=== PATIENT | male | born 1950 | race Caucasian/White ===

== ENCOUNTER 2019-06-27 20:17 | Inpatient (IN) ==
[2019-06-27 20:44] LABS: BASO# 0.02 X1000 (0.0-0.2); BASO% 0.3 % (0.0-0.8); EOS% 1.4 % (0.0-10.0); HEMOGLOBIN 15.4 g/dL (14.0-18.0); IMM GRAN# 0.02 X1000 (0.0-0.04); IMM GRAN% 0.3 % (0.0-0.5); LYMPH# 1.69 X1000 (1.2-3.4); LYMPH% 23.4 % (20.5-51.1); MCH 28.8 PG (27-31); MCHC 32.8 g/dL (33-37); MONO# 0.51 X1000 (0.11-0.59); MONO% 7.1 % (1.7-9.3); MPV 11.9 FL (7.4-10.4); NEUT# 4.87 X1000 (1.4-6.5); NEUT% 67.5 % (42.2-75.2); PLT 185 X1000 (130-400); RBC 5.34 XMIL (4.7-6.1); RDW 14.2 % (11.5-14.5); WBC 7.21 X1000 (4.8-10.8)
--- NOTE | 2019-06-27 20:48 | PROVIDER DOCUMENTATION ---
HPI-Neurological Disorder - General Chief Complaint: Stroke-Like Symptoms Stated Complaint: STROKE SX Time Seen by Provider: 06/27/19 20:31 Source: patient Allergies/Adverse Reactions: Patient Allergies Allergy/AdvReac Type Severity Reaction Status Date / Time No Known Allergies Allergy Verified 01/15/18 08:17 Home Medications: Home Medication List Medication Instructions Recorded Confirmed Last Taken Type Aspirin 81 mg PO DAILY 01/15/18 06/27/19 Unknown History Atorvastatin Calcium 40 mg PO DAILY 01/15/18 06/27/19 Unknown History Cyanocobalamin 1,000 mcg IM DIRECTED 01/15/18 06/27/19 Unknown History Levothyroxine [Synthroid] 0.05 mg PO DAILY 01/15/18 06/27/19 Unknown History Amlodipine Besylate 5 mg PO DAILY 06/27/19 06/27/19 Unknown History Cholecalciferol (Vitamin D3) 1 cap PO DAILY 06/27/19 06/27/19 Unknown History [D3-2000] Clonidine HCl 0.1 mg PO BID 06/27/19 06/27/19 Unknown History Clopidogrel Bisulfate [Clopidogrel] 75 mg PO DAILY 06/27/19 06/27/19 Unknown History - History of Present Illness-Neuro Nature of Presenting Problem: 68 YOM WITH PMH OF HTN AND CVA 2 MONTHS AGO PRESENTS WITH HEADACHE, SLURRED SPEECH (RESOLVED BEFORE ARRIVAL), L SIDED WEAKNESS INCREASED. 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 HE DENIES CP, SOB, N/V/D. PATIENT IS CURRENTLY ON PLAVIX. RECENTLY ADMITTED IN HOSPITAL IN [facility] FOR SAME COMPLAINTS AND STARTED ON PLAVIX. Headache Location: reports: global Severity: reports: mild Onset/Duration: reports: 1 hour ago Timing: reports: still present, improving Context: reports: impaired speech Character of Altered Mental Status: reports: N/A Any recent trauma/injury?: reports: none Character of Deficits: reports: new weakness, impaired speech (RESOLVED APPOINTMENT SETTER) New weakness or altered sensation location:: reports: JACE DON Cognitive Baseline: alert, oriented x3 Gait Baseline: walks without assistance Associated Symptoms: reports: denies symptoms Similar Symptoms Previously?: Yes Recently seen or treated by another doctor?: No Review of Systems - Adult - REVIEW OF SYSTEMS - ADULT Constitutional: reports: no symptoms reported. denies: see HPI, chills, fever, fatique, night sweats, weight gain, weight loss, other Eyes: reports: no symptoms reported. denies: see HPI, discharge, dry eyes, decreased vision, blurred vision, double vision, eye pain, redness, other Ears, Nose, Mouth & Throat: reports: no symptoms reported. denies: see HPI, ear discharge, ear pain, hearing loss, tinnitus, epistaxis, sinus problem, nose pain, loose teeth, mouth/dental pain, mouth swelling, hoarseness, throat pain, throat swelling, other Cardiovascular: reports: no symptoms reported. denies: see HPI, chest pain, edema, heart murmur, irregular heart rate, orthopnea, palpitations, poor circulation, PND, syncope, other Respiratory: reports: no symptoms reported. denies: see HPI, chronic cough, cough, dyspnea on exertion, excessive sputum production, hemoptysis, pleurisy, shortness of breath, wheezing, other Gastrointestinal: reports: no symptoms reported. denies: see HPI, abdominal pain, hematemesis, constipation, diarrhea, difficulty swallowing, frequent heartburn, nausea, poor appetite, rectal bleeding, vomiting, other Genitourinary: reports: no symptoms reported. denies: see HPI, dysuria, discharge, frequency, flank pain, frequent UTI's, hematuria, hesitency, incontinence, urinary retention, urgency, other Musculoskeletal: reports: no symptoms reported. denies: see HPI, bone pain, back pain, frequent leg cramps, joint pain, joint swelling, muscle aches, muscle weakness, neck pain, other Integumentary: reports: no symptoms reported. denies: see HPI, hives, hair loss, itching, mole changes, nail changes, rash, skin sores/ulcer, skin thickening, other Neurological: reports: see HPI, headache/migraines, paresthesia, slurred speech, other (L SIDED WEAKNESS) Psychiatric: reports: no symptoms reported. denies: see HPI, anxiety, anti- depressant use, alcohol/drug dependence, depression, emotional problems, insomnia, panic attacks, suicidal thoughts, other Endocrine: reports: no symptoms reported. denies: see HPI, change in skin pigment, excessive sweating, goiter, cold intolerance, heat intolerance, increased hunger, increased thirst, polyuria, other Hematologic/Lymphatic: reports: no symptoms reported. denies: see HPI, blood clots, easy bruising, low blood count, lymphedema, prolonged bleeding, swollen lymph nodes, transfusions, other Allergic/Immunologic: reports: no symptoms reported. denies: see HPI, allergic reactions, allergic rhinitis, asthma, eczema, food allergy, frequent infections, hay fever, hives, positive PPD, urticaria, other Past History - Adult - PAST MEDICAL HISTORY-ADULT Review of Records: reports: Nursing Assessment Review, Social history reviewed & non-contributory. Major Childhood Illnesses: reports: denies history Cardiovascular: reports: denies history Respiratory: reports: denies history Gastrointestinal: reports: denies history Genitourinary: reports: prostate cancer Musculoskeletal: reports: denies history Neurological: reports: denies history Psychiatric: reports: denies history Endocrine/Immune: reports: denies history - PRIOR SURGERIES/PROCEDURES Surgical/Procedure History: reports: other (prostate) Physical Exam- Neurological - Physical Exam-Neuro Initial Vital Signs Reviewed: Yes General Appearance: appears well, alert, no apparent distress Eye Exam: bilateral eye: normal inspection, PERRL, EOMI HENMT: normocephalic/atraumatic, moist mucous membranes, normal ENT inspection Head Injury: no evidence of injury Neck: non-tender, full range of motion, supple Respiratory: chest non-tender, lungs clear, normal breath sounds, no pleuratic chest pain, no respiratory distress, no accessory muscle use Cardiovascular: normal peripheral pulses, regular rate, rhythm, no edema, no gallop, no JVD, no murmur Abdominal Exam: normal bowel sounds, non tender, soft, no organomegaly, no pulsatile mass Lymphatic: no adenopathy Extremity: normal range of motion, non-tender, normal gait senior applications developer Exam: normal hearing, PERRL. negative: facial droop Coordination/Gait: normal finger to nose, normal gait Motor/Sensory: no motor deficit, no sensory deficit, no pronator drift, weak motor strength LUE, weak motor strength LLE. negative: sensory deficit Neurologic: grossly normal, focal weakness (L SIDE). negative: aphasia, facial droop Integumentary: normal color, normal turgor, warm/dry Psych/Mental Status: normal mood/affect, oriented x 3 - Glascow Coma Scale Best Eye Response: (4) open spontaneously Best Verbal Response: (5) oriented Best Motor Response: (6) obeys commands Progress - PLAN OF CARE/RESULTS Progress/Plan/Lab Results: Vital Signs - 8 hr 06/27/19 20:34 06/27/19 21:13 Temperature 98.7 F 99.1 F Pulse Rate 85 73 Respiratory Rate 16 Blood Pressure 180/74 157/71 O2 Sat by Pulse Oximetry 97 97 Laboratory Results - last 24 hr 06/27/19 06/27/19 06/27/19 20:38 20:38 20:38 WBC 7.21 RBC 5.34 Hgb 15.4 Hct 47.0 MCV 88.0 MCH 28.8 MCHC 32.8 L RDW Std Deviation 14.2 Plt Count 185 MPV 11.9 H Immature Gran % (Auto) 0.3 Neut % (Auto) 67.5 Lymph % (Auto) 23.4 Ray % (Auto) 7.1 Eos % (Auto) 1.4 Baso % (Auto) 0.3 Immature Gran # (Auto) 0.02 Neut # (Auto) 4.87 Lymph # (Auto) 1.69 Ray # (Auto) 0.51 Eos # (Auto) 0.10 Baso # (Auto) 0.02 PT INR PTT (Actin FS) Sodium 140 Potassium 4.4 Chloride 105 Carbon Dioxide 23 L Anion Gap 11 BUN 13 Creatinine 1.0 Estimated GFR/1.73 m2 > 60 BUN/Creatinine Ratio 13 Glucose 197 H POC Glucose Calculated Osmolality 285 Calcium 9.1 Total Bilirubin 1.40 H AST 14 ALT 13 Alkaline Phosphatase 59 Troponin T < 0.010 Total Protein 6.7 Albumin 4.3 Globulin 2.0 Albumin/Globulin Ratio 2.0 Urine Source Urine Color Urine Clarity Urine pH Ur Specific Ulm Urine Protein Urine Ketones Urine Blood Urine Nitrite Urine Bilirubin Urine Urobilinogen Urine Microscopic RBC Urine WBC Urine Microscopic WBC Ur Epithelial Cells Urine Crystals Urine Bacteria Urine Casts Urine Yeast Urine Glucose Urine Opiates Screen Ur Oxycodone Screen Urine Methadone Screen U Propoxyphene Qual Ur Barbituates Screen Ur Tricyclics Screen Ur Phencyclidine Scrn Ur Amphetamines Screen U Methamphetamines Scrn U Benzodiazepines Scrn Urine Cocaine Screen U Cannabinoids Screen 06/27/19 06/27/19 06/27/19 20:38 21:03 21:07 WBC RBC Hgb Hct MCV MCH MCHC RDW Std Deviation Plt Count MPV Immature Gran % (Auto) Neut % (Auto) Lymph % (Auto) Ray % (Auto) Eos % (Auto) Baso % (Auto) Immature Gran # (Auto) Neut # (Auto) Lymph # (Auto) Ray # (Auto) Eos # (Auto) Baso # (Auto) PT 12.2 INR 0.87 PTT (Actin FS) 24.7 Sodium Potassium Chloride Carbon Dioxide Anion Gap BUN Creatinine Estimated GFR/1.73 m2 BUN/Creatinine Ratio Glucose POC Glucose 192 H Calculated Osmolality Calcium Total Bilirubin AST ALT Alkaline Phosphatase Troponin T Total Protein Albumin Globulin Albumin/Globulin Ratio Urine Source CLEAN CATCH Urine Color YELLOW Urine Clarity CLEAR Urine pH 5.0 Ur Specific Ulm 1.015 Urine Protein NEGATIVE Urine Ketones NEGATIVE Urine Blood 1+ A Urine Nitrite NEGATIVE Urine Bilirubin NEGATIVE Urine Urobilinogen NORMAL Urine Microscopic RBC <10 Urine WBC NEGATIVE Urine Microscopic WBC <10 Ur Epithelial Cells <10 Urine Crystals NONE SEEN Urine Bacteria 1+ Urine Casts NONE SEEN Urine Yeast NONE SEEN Urine Glucose 2+(250 mg/dL) A Urine Opiates Screen Ur Oxycodone Screen Urine Methadone Screen U Propoxyphene Qual Ur Barbituates Screen Ur Tricyclics Screen Ur Phencyclidine Scrn Ur Amphetamines Screen U Methamphetamines Scrn U Benzodiazepines Scrn Urine Cocaine Screen U Cannabinoids Screen 06/27/19 21:07 WBC RBC Hgb Hct MCV MCH MCHC RDW Std Deviation Plt Count MPV Immature Gran % (Auto) Neut % (Auto) Lymph % (Auto) Ray % (Auto) Eos % (Auto) Baso % (Auto) Immature Gran # (Auto) Neut # (Auto) Lymph # (Auto) Ray # (Auto) Eos # (Auto) Baso # (Auto) PT INR PTT (Actin FS) Sodium Potassium Chloride Carbon Dioxide Anion Gap BUN Creatinine Estimated GFR/1.73 m2 BUN/Creatinine Ratio Glucose POC Glucose Calculated Osmolality Calcium Total Bilirubin AST ALT Alkaline Phosphatase Troponin T Total Protein Albumin Globulin Albumin/Globulin Ratio Urine Source Urine Color Urine Clarity Urine pH Ur Specific Ulm Urine Protein Urine Ketones Urine Blood Urine Nitrite Urine Bilirubin Urine Urobilinogen Urine Microscopic RBC Urine WBC Urine Microscopic WBC Ur Epithelial Cells Urine Crystals Urine Bacteria Urine Casts Urine Yeast Urine Glucose Urine Opiates Screen NONE DETECTED Ur Oxycodone Screen NONE DETECTED Urine Methadone Screen NONE DETECTED U Propoxyphene Qual NONE DETECTED Ur Barbituates Screen NONE DETECTED Ur Tricyclics Screen NONE DETECTED Ur Phencyclidine Scrn NONE DETECTED Ur Amphetamines Screen NONE DETECTED U Methamphetamines Scrn NONE DETECTED U Benzodiazepines Scrn NONE DETECTED Urine Cocaine Screen NONE DETECTED U Cannabinoids Screen NONE DETECTED Orders Category Date Time Status Admit - [facility] Routine AdmDCTranf 06/27/19 21:21 Active Activity - Bed Rest with BRP ORDERED Care 06/27/19 21:21 Active Cardiac Monitoring DIRECTED Care 06/27/19 20:34 Active Finger Stick Blood Sugar (ED) DIRECTED Care 06/27/19 20:34 Active Neurological Check ORDERED Care 06/27/19 21:21 Active Saline Loc DIRECTED Care 06/27/19 21:21 Active Saline Loc NOW Care 06/27/19 20:34 Active Vital Signs Order ROUTINE Care 06/27/19 21:21 Active Heart Healthy Diet Diet 06/27/19 21:23 Active CHEST-PORTABLE [RAD] Stat Exams 06/27/19 20:[address] HEAD W/O CONTRAST [CT] Stat Exams 06/27/19 20:34 Completed CBC WITH ELECTRONIC DIFF [HEME] Stat Lab 06/27/19 20:38 Completed COMPREHENSIVE METABOLIC PANEL [CHEM] Stat Lab 06/27/19 20:38 Completed PROTIME WITH INR [COAG] Stat Lab 06/27/19 20:38 Completed PTT [COAG] Stat Lab 06/27/19 20:38 Completed TROPONIN T Stat Lab 06/27/19 20:[address] W/POSS RFLX CULT [URINALYSIS] Stat Lab 06/27/19 21:07 Completed URINE DRUG SCREEN PL Stat Lab 06/27/19 21:07 Completed 0.9% Sodium Chloride Inj [Ns] 1,000 ml Med 06/27/19 21:21 Active IV 50 mls/hr EKG [EKG] Stat Ther 06/27/19 20:34 Ordered Transfer/Admit Order [TRANSFER] Routine Transfer 06/27/19 21:23 Ordered Result Diagrams: 06/27/19 20:38 06/27/19 20:38 - EKG 1 Time of EKG reading by physician:: 22:08 EKG Read and Signed by:: Edmond Miller EKG Interpretation (*Must complete 3 of following elements*): Abnormal Rate: 71 Rhythm: SR WITH INCOMPLETE RMM Wallace: normal QRS: normal MO Interval: normal ST Wave: non-specific ST changes Prior EKG Comparison: no prior EKG Departure - Departure Date of Disposition Decision: 06/27/19 Time of Disposition Decision: 21:39 DIAGNOSIS: TIA (transient ischemic attack) Disposition: ADMITTED INPATIENT 09 Certified Medical Emergency: Emergent Condition: Stable - Critical Care Note This patient required my direct & personal management of CC.: No Attestation - Physician/ JOELLE Attestation Patient care was provided by Advanced Practice Provider:: Yes Advanced Practice Provider:: Shanell Rosas Advanced Practice Provider documentation review:: The Mid-level provider documentation, treatment plan and medical decision making was reviewed by the physician who agrees with all treatment and medical decision making by the MLP. The physician spent face to face time with patient:: Yes Advanced Practice Provider documentation review:: Supervising physician onsite and consulted in the evaluation and care of this patient. The physician did have a face to face encounter with the patient. - NIH Stroke Scale NIH Type: Initial Evaluation Level of Consciousness: 0-Alert LOC Questions (ask month and age): 0-Answers Both Correctly LOC Commands (ask to open & close eyes;make a fist, let go): 0-Obeys Both Correctly Best Gaze (horizontal eye movement): 0-Normal Visual (use finger movement, counting or visual threat): 0-No Visual Loss Facial Palsy (show teeth or raise eyebrows & close eyes tght: 0-Symmetrical Movement Motor Function-left arm: 1-Drift Motor Function-right arm: 1-Drift Motor Function-left le-Normal Motor Function-right le-Normal Limb Ataxia([id number], or heel to emerson): 0-No Ataxia Sensory(pin prick to face,arms,trunk,legs-compare side/side): 0-No Ataxia Best Language(name item/read sentence.Ex-Down to Earth): 0-No Aphasia Dysarthria(Pt read words or say words Ex.Mama,Tip-Top,Thanks: 0-Normal Articulat ion NIH Total Score: 2 Stroke tPA Guidelines - Inclusion Criteria for IV tPA 18 years old or older: Yes Ischemic stroke with measurable deficit: Yes Onset <3 hours ago *OR* 3-4.5 hours ago: Yes - Exclusion Criteria for IV tPA Evidence of intracranial hemorrhage on CT: No Presentation suggest SAH: No CT reveals defined area of hypodensity: No Evidence of AVM, neoplasm, aneurysm: No Seizure at stroke onset: No Active internal bleeding or acute trauma: No Platelet Count Less Than 100,000: No Heparin Within Last 48 HRS (PTT >Lab normal limits): No INR > 1.7 (warfarin use): No Use IIB/IIIA inhibitors within 24 hours: Yes Serious Head Trauma Within Last 3 Months: No Arterial Puncture Within Last 7 Days: No Lumbar Puncture Within Last 7 Days: No Repeated systolic Blood Pressure >185 or Diastolic >110: Yes - Additional Exclusion Criteria for IV tPA Currently on Coumadin: No Patient older than 80: No Prior stroke and diabetes: Yes Baseline NIHSS score > 25: No - Relative Contraindications to IV tPA CT reveals extensive area of infarct (>1/3 MCA territory): No Minor or rapidly improving stroke symptoms: Yes Major Surgery or Serious Trauma In Previous 14 Days: No AMI within 3 months: No Gastrointestinal or Urinary Tract hemorrhage in Past 21 Days: No Post - AMI pericarditis: No Blood Glucose Less Than 50 mg/dl or Greater Than 400 mg/dl: No - Consultation Candidate for:: NOT A CANDIDATE
--- NOTE | 2019-06-27 20:58 | Diag Imaging Result Doc PS360 ---
EXAM: CT HEAD W/O CONTRAST HISTORY: STROKE SYMPTOMS TECHNIQUE: CT head without contrast COMPARISON: None. FINDINGS: No parenchymal hemorrhage. No epidural or subdural hematoma. No subarachnoid hemorrhage. No mass identified on this noncontrasted exam. No hydrocephalus. No sinus opacification. IMPRESSION: No hemorrhage. Negative brain CT without contrast. This exam was performed using automated exposure control, adjustment of mA or kV according to patient size, and/or use of iterative reconstruction technique. Electronically signed by Otf Bennett 06/27/2019 8:55 PM
--- NOTE | 2019-06-27 21:00 | Diag Imaging Result Doc PS360 ---
EXAM: CHEST-PORTABLE HISTORY: STROKE SYM TECHNIQUE: Single view COMPARISON: 12/17/2017 FINDINGS: The lungs are well expanded. The heart is not enlarged. The vessels are not distended. There are no infiltrates. No effusion identified. IMPRESSION: Negative exam. Electronically signed by Otf Bennett 06/27/2019 8:57 PM
[2019-06-27 21:03] LABS: INR 0.87; PROTIME 12.2 Seconds (11.0-16.0)
[2019-06-27 21:04] LABS: PTT 24.7 Seconds (22.3-41.8)
[2019-06-27 21:06] LABS: AGAP 11; ALBUMIN 4.3 g/dL (3.5-5.0); ALKALINE PHOSPHATASE 59 U/L (32-122); BUN 13 mg/dL (8-22); CALCIUM 9.1 mg/dL (8.8-10.2); CHLORIDE 105 mmol/L (98-107); COSMO 285; ESTIMATED GFR > 60; GLUCOSE 197 mg/dL (70-104); GOT 14 U/L (10-34); GPT 13 U/L (10-44); POTASSIUM 4.4 mmol/L (3.5-5.1); SODIUM 140 mmol/L (136-145); TCO2 23 mmol/L (25-35); TOTAL PROTEIN 6.7 g/dL (6.3-8.3)
[2019-06-27 21:14] LABS: BILIRUBIN URINE NEGATIVE (NEGATIVE); BLOOD URINE 1+ (NEGATIVE); CLARITY CLEAR (CLEAR); COLOR YELLOW; KETONE URINE NEGATIVE (NEGATIVE); LEUKOCYTES URINE NEGATIVE (NEGATIVE); NITRITE URINE NEGATIVE (NEGATIVE); PROTEIN URINE NEGATIVE (NEGATIVE); SP GRAVITY URINE 1.015; UROBILINOGEN URINE NORMAL
[2019-06-27 21:18] LABS: URINE BACTERIA 1+ /HFP; URINE CAST NONE SEEN /LPF; URINE EPITHELIAL CELLS <10 /HPF (<10); URINE RBC <10 /HPF (<10); URINE SOURCE CLEAN CATCH; URINE WBC <10 /HPF (<10); URINE YEAST NONE SEEN /HPF
[2019-06-27 21:19] LABS: URINE CRYSTAL NONE SEEN /HPF
[2019-06-27] MEDS ORDERED: NS 1,000 ML IV ONE (21:21)
[2019-06-27 21:22] LABS: UR AMPHETAMINES QUAL NONE DETECTED (NONE DETECT); UR BARBITUATES QUAL NONE DETECTED (NONE DETECT); UR BENZODIAZEPIN QUAL NONE DETECTED (NONE DETECT); UR CANNABINOIDS QUAL NONE DETECTED (NONE DETECT); UR COCAINE QUAL NONE DETECTED (NONE DETECT); UR METHADONE QUAL NONE DETECTED (NONE DETECT); UR METHAMPHETAMINE QUAL NONE DETECTED (NONE DETECT); UR OPIATES QUAL NONE DETECTED (NONE DETECT); UR OXYCODONE QUAL NONE DETECTED (NONE DETECT); UR PCP QUAL NONE DETECTED (NONE DETECT); UR PROPOXYPHENE QUAL NONE DETECTED (NONE DETECT); UR TCA QUAL NONE DETECTED (NONE DETECT)
[2019-06-27] MEDS: TYLENOL PO PRN (23:53)
[2019-06-28] MEDS: TYLENOL PO PRN ×2 (06:53→22:28)
--- NOTE | 2019-06-28 07:35 | EKG Report ---
Test Performed on : 06/27/2019 10:08:05 PM Test Reason : STROKE SYMPTOMS Blood Pressure : / mmHG Vent. Rate : 071 BPM Atrial Rate : 071 BPM P-R Int : 156 ms QRS Dur : 098 ms QT Int : 414 ms P-R-T Axes : 051 -23 014 degrees QTc Int : 449 ms Normal sinus rhythm. Incomplete right bundle branch block Inferior infarct , age undetermined Abnormal ECG No previous ECGs available Unconfirmed Result
--- NOTE | 2019-06-28 09:06 | HISTORY AND PHYSICAL ---
PRIMARY CARE PHYSICIAN: Dr. Darin Rodrigues. CHIEF COMPLAINT: Headache, slurred speech, left-sided weakness that was worse, that began 1 hour prior to arriving, and was resolved on arrival. HISTORY OF PRESENTING ILLNESS: This is a 68-year-old male who presents to [facility] ER with complaints of headache, slurred speech, and left-sided weakness that had increased, with symptoms beginning 1 hour prior to arrival, around 7:30 p.m. last night. The patient states he had a stroke about 2 months ago, and was on aspirin and Plavix. He did have some residual left-sided weakness, and was worse now. His slurred speech had resolved before he arrived. States he has been taking his medications as prescribed, but has noted an increase in his blood pressure that is causing his headache, and he sees Dr. Tate at the [facility] for his blood pressure control. His CT of the head was negative, brain CT without contrast, but he is being admitted for further evaluation and treatment. PAST MEDICAL HISTORY: Hypertension, CVA 2 months ago, prostate cancer, hypothyroidism, and hyperlipidemia. PAST SURGICAL HISTORY: Prostatectomy. FAMILY HISTORY: His grandmother had CVA. Father had prostate cancer, and he has heart disease in his family. SOCIAL HISTORY: Currently lives with family. Denies any tobacco use, stating he is a former smoker and quit in 1989. Denied any alcohol or illicit drug use. ALLERGIES: He has no known drug allergies. HOME MEDICATIONS: He takes amlodipine 5 mg p.o. daily, aspirin 81 mg p.o. daily, atorvastatin 20 mg p.o. daily, vitamin D3 at 2000 units p.o. daily, clonidine 0.1 mg p.o. b.i.d., Plavix 75 mg p.o. daily, cyanocobalamin 1000 mg IM as directed, and Synthroid 0.05 mg p.o. daily. IMAGING AND LABORATORY DATA: Laboratory data showed a white blood cell count of 7.71, hemoglobin 15.4, hematocrit 47, platelets 185,000. PT and INR of 12.2 and 0.87. Sodium 140, potassium 4.4, chloride 105, CO2 of 23, BUN of 13, creatinine 1, glucose 197. Troponin was negative. Urinalysis was negative. Urine drug screen was negative. CT of the head with a negative brain CT without contrast. Chest x-ray: Negative exam. EKG: Normal sinus rhythm at 71. REVIEW OF SYSTEMS: He denies any fever, chills, blurred vision, dizziness. He was positive for headache, slurred speech, left-sided weakness. Denied any chest pain, coughing, shortness of breath. Denied any abdominal pain, constipation, diarrhea, burning or hurting with urination. PHYSICAL EXAMINATION: VITAL SIGNS: On arrival, he had a temperature of 98.7 degrees, pulse 85, respirations 16, blood pressure at 180/74, saturating 97% on room air. Currently, blood pressure is down to 159/67. GENERAL: This is a 68-year-old male who is lying in the bed, answers questions appropriately. HEENT: Head is normocephalic, atraumatic. Normal ENT inspection. Oropharynx and nares are clear. Eyes: Pupils are equal, round, and reactive to light and accommodation. Extraocular movements are intact. NECK: Normal inspection. Normal range of motion. LUNGS: Clear to auscultation bilaterally with equal lung expansion and chest wall movement. HEART: Regular rate and rhythm. No murmurs, rubs, or gallops. ABDOMEN: Soft, nontender, nondistended. Bowel sounds are present x4 quadrants. MUSCULOSKELETAL: He does have motor strength weakness to his left upper and lower extremity, 5/5 strength to the right side. NEUROLOGICAL: The cranial nerves II through XII are grossly intact, but again he has the left- sided weakness to his upper and lower extremity. Slurred speech has resolved, and no facial droop is noted. ASSESSMENT: 1. Transient ischemic attack versus cerebrovascular accident. 2. Hypertension. 3. Hypothyroidism. 4. Hyperlipidemia. PLAN: We admitted him to the medical unit, placed on a healthy heart diet. We are checking a carotid ultrasound and a limited echocardiogram. Will get an MRI of the brain without contrast today. Continue all his home medications. Physical Therapy has been consulted, and after reviewing all of his test results today, he may possibly be able to be discharged home later this afternoon per attending. Dictated by SAMANTHA Garces for Miko Burch MD cc: SAMANTHA Garces MD Micah A. Howard, MD
--- NOTE | 2019-06-28 10:37 | Vascular Study Report ---
EXAM: Carotid Ultrasound HISTORY: TIA TECHNIQUE: Grayscale, duplex, and color Doppler evaluation was performed of the carotid arteries bilaterally. Standard protocol. COMPARISON: None. FINDINGS: There is bilateral calcific atherosclerotic plaque at the bifurcations. There are no velocity elevations to suggest hemodynamically significant carotid artery stenosis. ICA/CCA ratios are within normal limits, 0.92 on the right and 0.68 on the left. Bilateral vertebral arterial flow is antegrade. IMPRESSION: No evidence for hemodynamically significant carotid artery stenosis. Estimated stenosis is less than 50% bilaterally. Electronically signed by Ayala Blackwood 06/28/2019 10:35 AM
[2019-06-28] MEDS: NORVASC PO SCH (13:23)
[2019-06-28] MEDS: SYNTHROID PO SCH (13:23)
[2019-06-28] MEDS: CATAPRES PO SCH ×2 (13:23→21:51)
[2019-06-28] MEDS: PLAVIX PO SCH (13:23)
[2019-06-28] MEDS: VITAMIN D PO SCH (13:24)
[2019-06-28] MEDS: ASPIRIN PO SCH (13:24)
--- NOTE | 2019-06-28 16:45 | Diag Imaging Result Doc PS360 ---
EXAM: MRI BRAIN W/O CONTRAST HISTORY: TIA vs CVA TECHNIQUE: Multisequence, multiplanar images of the brain were obtained without contrast as per standard protocol. COMPARISON: None. FINDINGS: Diffusion images show restricted diffusion involving the right basal ganglia including the head and body of the caudate nucleus and putamen. There is mild corresponding T2 and FLAIR hyperintensity and mild mass effect upon the right lateral ventricle. There is no abnormal signal within the brainstem, cerebellum, or left cerebral hemisphere. No hydrocephalus. There is mild age-appropriate atrophy.. There is no evidence for hemorrhage on gradient echo imaging. This report was discussed with Opal, the patient's nurse on the floor on 06/28/2019 at 4:40 PM with read back verification. IMPRESSION: Acute right basal ganglia infarct. Electronically signed by Ayala Blackwood 06/28/2019 4:42 PM
--- NOTE | 2019-06-28 19:17 | ECHO REPORT ---
ORDER DATE: 06/27/2019 INTERPRETING PHYSICIAN: Dr. Maria CLINICAL INDICATIONS: This is a 68-year-old male with TIA. M-MODE MEASUREMENTS: Left ventricle end diastole: 4.7 cm. Left ventricle end systole: 3.2 cm. Posterior wall: 1.0 cm. Interventricular septum: 1.0 cm. Left atrium: 3.8 cm. Aortic root: 3.2 cm. SUMMARY OF 2-DIMENSIONAL IMAGIN. The left ventricular function is normal. Ejection fraction is 69%. There is no wall motion abnormality noted. 2. Right ventricle appears to be normal. Inferior vena cava is not dilated. 3. The left atrium appears to be at the upper limits of normal versus mildly enlarged. The study is difficult. 4. Aortic valve appears to be grossly normal. Color flow mapping unremarkable. 5. The mitral valve looks grossly normal. Color flow mapping indicates a mild degree of regurgitation. 6. Pulsed wave Doppler of mitral inflow showed normal E/A ratio. 7. The tissue Doppler of septal and lateral mitral annulus averages 8 cm. 8. The pulmonary venous flow is normal. 9. There is no diastolic dysfunction. 10.Tricuspid valve looks normal with mild degree of regurgitation. 11.Pulmonary pressure is estimated at 33 mmHg. 12.Pulmonic valve is unremarkable. 13.There is no pericardial effusion, mass, and no thrombus. Clinical correlation is recommended. cc: Hector Maria MD
[2019-06-28] MEDS ORDERED: LIPITOR PO SCH (21:00)
--- NOTE | 2019-06-29 02:43 | HISTORY AND PHYSICAL ---
ADDENDUM: SUBJECTIVE: The patient notes that the chest pain is better, it stopped sometime in the past 6 or 8 hours. He denies any fevers, chills, cough, congestion. cc: Miko Burch MD
[2019-06-29] MEDS: TYLENOL PO PRN ×2 (03:21→21:25)
[2019-06-29] MEDS: CATAPRES PO SCH ×3 (06:25→21:25)
[2019-06-29] MEDS: ASPIRIN PO SCH ×2 (06:25→08:07)
[2019-06-29] MEDS: PLAVIX PO SCH ×2 (06:25→08:07)
[2019-06-29] MEDS: SYNTHROID PO SCH (06:26)
[2019-06-29] MEDS: NORVASC PO SCH ×2 (06:26→08:08)
[2019-06-29] MEDS: VITAMIN D PO SCH ×2 (06:26→08:07)
[2019-06-29] MEDS: NS 1,000 ML IV SCH (11:44)
[2019-06-29] MEDS: ALTACE PO SCH (11:44)
--- NOTE | 2019-06-29 18:16 | PROGRESS NOTE ---
DATE: 06/29/2019 SUBJECTIVE: Patient has no major complaints. OBJECTIVE: He is still having some weakness. He is still having some speech difficulty. He says he is not recovering as well as he did the last time he had this. Blood pressure 157/75, heart rate of 57, respiratory rate of 18, temperature 98.1 degrees, 97% on room air.Cardiovascular: Regular rate and rhythm. Pulmonary: Bilateral breath sounds clear to auscultation. GI: Soft, nontender, nondistended. Bowel sounds are positive. LABORATORY DATA: No new data today. His LDL is only 50, triglycerides 156. PROBLEM LIST: 1. He has had a right parietal CVA which is acute or possibly subacute. He had another episode in February. His workup thus far is negative. I explained at length I think we need to get a neuro evaluation because he has had 2 strokes in the span of 4 months and he is already on optimal therapy, aspirin, Plavix. He is on Lipitor. He can only tolerate 20 at a time. We discussed about changing him to a different agent so I am going to try for rosuvastatin, he was okay with trying that. 2. Hypothyroidism, that seems controlled. DISPOSITION: I anticipate if he is stable and neuro has no other input we will hopefully discharge him tomorrow. I did order a CTA of his head and neck just to evaluate for obstruction. cc: Jean Carlos Wahl MD
--- NOTE | 2019-06-29 18:27 | Diag Imaging Result Doc PS360 ---
EXAM: CT ANGIOGRAM HEAD HISTORY: cva TECHNIQUE: CT angiogram head with intravenous contrast. Arteriogram protocol with MIP images. COMPARISON: None. FINDINGS: Suboptimal exam. Normal flow in the distal internal carotid arteries. There is filling of the anterior and middle cerebral arteries. Normal basilar artery. There is flow in the posterior cerebral arteries. There are small posterior communicating arteries. This is a normal variant. No aneurysm. IMPRESSION: No abnormality identified. This exam was performed using automated exposure control, adjustment of mA or kV according to patient size, and/or use of iterative reconstruction technique. Electronically signed by Otf Bennett 06/29/2019 6:24 PM
--- NOTE | 2019-06-29 20:21 | CONSULTATION ---
DATE OF CONSULTATION: 06/29/2019 HISTORY OF PRESENT ILLNESS: Mr. Connors is 68 years old and it looks like he has had a stroke. History from the patient is that he seemed suddenly unsteady with gait about 2 days ago. Initially, he seemed to be weak in both legs. Eventually, he discovered he was weak in the left leg. He noticed weakness in the left arm. noticed slurred speech. There was no vision disturbance. There was never altered consciousness or altered awareness. His memory of this event is good. He presented to the hospital and was admitted. He reports he is improved now. He reports having an episode of left arm and leg weakness, resolving over approximately 2 days, about 4 months ago. He was hospitalized in [place] then. He reports diagnosis of stroke "due to plaque breaking off". He did not have any other neurologic event or neurologic symptoms until 2 days ago. There is no other history of stroke, seizure, serious head injury, other neurologic event. Risk factors include hypertension and dyslipidemia. He has ischemic heart disease and history of stenting. Other past history is remarkable for prostate cancer and hypothyroidism. He quit smoking cigarettes 30 years ago. He does not use ethanol. He has been taking his medications regularly as directed, including aspirin, clopidogrel, statin, blood pressure medicine. He reports having frequent headaches in recent weeks. Headache would often be prominent with systolic blood pressures measured at home in the 180s. At other times, he had adequate systolic blood pressures in the 130s. On presentation here, noncontrast CT of the head was reported unremarkable. He had carotid ultrasound which showed no hemodynamically significant stenosis bilaterally. Echocardiogram did not show source of embolus. Later, brain MRI showed restricted diffusion in the right basal ganglia. He has been afebrile. Heart rate has ranged from 80s initially down to 50s recently. Systolic blood pressures have ranged 140s to 180s here. OBJECTIVE: On exam, Mr. Connors is awake, alert, attentive, appropriate, oriented. Speech is not dysarthric now. Language function is intact. Memory seems good on limited testing. Head and neck are unremarkable. Visual childs are full to gross confrontational finger counting. Extraocular movements are full. Facial motility is good bilaterally. The left nasolabial fold is very slightly less prominent than the right. Gag is intact. Tongue and palate are midline. He can hear. Shoulder shrug is equal. Strength is normal in the right limbs. I can overcome the left deltoid grading 4/5, wrist extensor 4+/5, iliopsoas 4+/5. Tone is increased in the left arm. He did rapid alternating movements a little better with the right hand than the left. He did well on [id number] testing bilaterally. He reports equal sensation over the limbs on gross testing. I did not test his gait. Plantar response is silent bilaterally. Proprioception is good at the great toe MTP joint bilaterally. IMPRESSION: Isolated relatively mild pure motor left hemiparesis without definite sensory or vision disturbance. This is consistent with the nondominant subcortical infarction as documented on MRI. There was earlier concern that we might be seeing some MRI findings related to the neurologic event from 4 months ago, but that seems less likely. I think the scan findings are more consistent with acute infarction 2 days ago as suggested by his history. I encouraged him to be aggressive with the management of his risk factors. At this point, with 2 day history, stable course, MRI evidence of basal ganglia area infarction, I think we can treat blood pressure aggressively. I am optimistic his headache will be improved with control of blood pressure. Would treat lipids aggressively. He has had elevated blood sugars here and he may have diabetes mellitus, and I would treat blood sugar aggressively. I encouraged him to continue off cigarettes. I would continue aspirin and clopidogrel together short-term. If he does not have any bleeding complications, he might continue those longer-term. I believe, based on his report to me, his medical coding instructor may have prescribed this regimen and there may be cardiac reasons to continue dual antiplatelet management extermination inspector. I do not think there is other workup we need right now. Physical therapy might be helpful, but I expect he will continue to improve spontaneously. Thanks for asking Neurology to see Mr. Connors. cc: MD WESLEY Mathew III
[2019-06-29] MEDS ORDERED: CRESTOR PO SCH (21:00)
[2019-06-30] MEDS: NS 1,000 ML IV SCH (01:07)
[2019-06-30 05:26] VITALS: BP 150/67
[2019-06-30] MEDS: PLAVIX PO SCH ×2 (06:12→10:25)
[2019-06-30] MEDS: CATAPRES PO SCH ×2 (06:12→10:25)
[2019-06-30] MEDS: TYLENOL PO PRN (06:12)
[2019-06-30] MEDS: VITAMIN D PO SCH ×2 (06:13→10:25)
[2019-06-30] MEDS: ASPIRIN PO SCH ×2 (06:13→10:25)
[2019-06-30] MEDS: SYNTHROID PO SCH (06:14)
[2019-06-30] MEDS: NORVASC PO SCH ×2 (06:15→10:25)
[2019-06-30] MEDS: ALTACE PO SCH ×2 (06:15→10:25)
--- NOTE | 2019-07-01 09:29 | DISCHARGE SUMMARY ---
ADMISSION DATE: 06/27/2019 DISCHARGE DATE: 06/30/2019 DISCHARGE DIAGNOSES: 1. Right parietal stroke, probably subacute. 2. Uncontrolled hypertension. 3. Coronary artery disease. HOSPITAL COURSE: Briefly a 68-year-old male. He actually had a stroke back in February, mild and recovered completely. Then he presented again with headache and slurred speech. CT I think was negative. He had pretty significant hypertension. His carotid Doppler did not show significant stenosis or at least less than 50%. His echocardiogram looked pretty good, EF 69%. All the rest of the testing looked okay. Brain MRI, however, showed a right basal ganglia infarct, acute, in the body of the caudate, head of the caudate and the putamen. Unfortunately he was already on pretty good therapy; aspirin, Plavix, Lipitor 20. He could not tolerate higher doses of statin. His blood pressure was on the high side. I did go ahead and get a Neurology opinion and a head CTA, which head CTA was really unremarkable. Dr. Laws said to encourage blood pressure control and take off tobacco, and overall he seemed to be better. He is followed very closely by Dr. Tate for blood pressure control. She has been aggressively trying to manage that between agents, but he is very intolerant of several agents. He feels like the clonidine has worked; so, we are going to continue that and I am going to increase the dose. DISCHARGE MEDICATIONS: Amlodipine 5, aspirin 81 daily, Plavix 75, vitamin D 3, Synthroid 50 mcg daily, Crestor 10 daily, clonidine 0.2 b.i.d., and Ultram 50 t.i.d. p.r.n. pain. FOLLOW UP: With his PCP and Dr. Tate for blood pressure control. Return immediately for any neurological change. cc: Jean Carlos Wahl MD
[2019-07-24] MEDS ORDERED: CYANOCOBALAMIN IM SCH (08:00)
== END 2019-06-30 12:32 | disposition home or self-care (01) | DRG 65 ==
LOC: P.ED 20:17 → P.MEDSURG 22:18 → SUATTDRO 22:18
PROVIDERS: ATTEND Internal Medicine